=== PATIENT | female | born 1990 | race Two or more races ===

== ENCOUNTER 2021-05-03 12:32 | Inpatient (IN) | payer OTHER ==
[~2021-05-03] VITALS: Ht 162.6 cm; Wt 99.5 kg
[2021-05-03] MEDS ORDERED: ZINC SULFATE 220mg CAP or TAB PO ONE (13:15)
[2021-05-03] MEDS ORDERED: CHOLECALCIFEROL (VITD3) 2,000 UNIT CAP/TAB PO ONE (13:15)
[2021-05-03] MEDS ORDERED: ASCORBIC ACID 500 MG TAB PO ONE (13:15)
[2021-05-03] MEDS ORDERED: AZITHROMYCIN 500MG/ 250ML 250 ML IV ONE (13:15)
[2021-05-03] MEDS ORDERED: methylPREDNISolone SOD SUCC 125 MG/2 ML VL IV ONE (13:15)
[2021-05-03 13:47] LABS: Basophils # (auto) 0 10 ^3/uL (0-0.2); Basophils % (auto) 0.3 % (0.0-2.0); Eosinophils # (auto) 0 10 ^3/uL (0-0.8); Hematocrit 42.1 % (36.0-46.0); Hemoglobin 14.4 g/dL (12.2-16.2); Lymphocytes # (auto) 1.3 10 ^3/uL (0.4-5.4); Lymphocytes % (auto) 15.4 % (10.0-50.0); Mean Corpuscular Hemoglobin 28.2 pg (28.0-32.0); Mean Corpuscular Hgb Conc. 34.3 g/dL (32.0-36.0); Mean Corpuscular Volume 82.1 fL (80.0-100.0); Monocytes # (auto) 0.6 10 ^3/uL (0-1.3); Monocytes % (auto) 7.5 % (0.0-12.0); Neutrophils # (auto) 6.4 10 ^3/uL (1.6-8.6); Neutrophils % (auto) 76.8 % (37.0-80.0); Red Blood Cells 5.13 10^6/uL (4.0-5.20); Red Cell Distribution Width 13.3 % (11.8-14.3); White Blood Cell 8.4 10^3/uL (4.4-10.8)
[2021-05-03 14:04] LABS: Albumin 3.3 g/dL (3.4-5.0); Anion Gap 10 (5-15); Blood Urea Nitrogen 10 mg/dL (7-18); Calcium 8.4 mg/dL (8.5-10.1); Carbon Dioxide 23 mmol/L (21-32); Chloride 102 mmol/L (98-107); Glucose 107 mg/dL (74-106); Potassium 3.4 mmol/L (3.5-5.1); Sodium 135 mmol/L (136-145)
[2021-05-03 14:12] LABS: Alanine Aminotransferase 64 U/L (13-56); Alkaline Phosphatase 99 U/L (45-117); Aspartate Aminotransferase 50 U/L (15-37); BUN/Creatinine Ratio 12.7; Bilirubin, Total 0.5 mg/dL (0.2-1.0); CRP High Sensitivity 3.98 mg/dL (< 0.3); GFR African American 108 mL/min; GFR Non-African American 89 mL/min; Total Protein 8.2 g/dL (6.4-8.2)
[2021-05-03] MEDS ORDERED: REMDESIVIR PER PHARMACY 0 ML IV SCH ×3 (16:29→16:30)
[2021-05-03] MEDS ORDERED: guaiFENesin-DM 100/10mg/5ml SYR PO PRN (16:30)
[2021-05-03] MEDS ORDERED: MORPHINE SULFATE INJECTION 2 MG/ML SYRG IV PRN ×2 (16:30)
[2021-05-03] MEDS ORDERED: ACETAMINOPHEN 500 MG TAB PO PRN (16:30)
[2021-05-03] MEDS ORDERED: ONDANSETRON HCL 4 MG/2 ML VIAL IV PRN (16:30)
[2021-05-03] MEDS ORDERED: NITROGLYCERIN 0.4 MG SL TAB SL PRN (16:30)
[2021-05-03] MEDS ORDERED: HYDROcodone-ACET 5/325MG TAB PO PRN (16:30)
[2021-05-03] MEDS ORDERED: SODIUM CHLORIDE 0.9% 1,000 ML IV ONE (16:45)
[2021-05-03] MEDS ORDERED: POTASSIUM EFFERVESENT TAB 25 MEQ PO ONE (17:00)
[2021-05-03] MEDS ORDERED: LOPERAMIDE HCL 2 MG CAP PO PRN (18:00)
[2021-05-03] MEDS ORDERED: LOPERAMIDE HCL 2 MG CAP PO ONE (18:00)
[2021-05-03 21:38] VITALS: BP 112/71
[2021-05-03] MEDS: BUDESONIDE (INHALATION) 180 MCG IH IN SCH (21:56)
[2021-05-03] MEDS: ALBUTEROL SULF HFA 90MCG INH 200DOSE IN PRN (21:57)
[2021-05-03] MEDS: ENOXAPARIN SOD 40 MG/0.4 ML SYRINGE SC SCH (22:37)
[2021-05-03 23:55] VITALS: BP 131/83
[2021-05-04 05:30] VITALS: BP 127/83
[2021-05-04 05:54] LABS: Basophils # (auto) 0 10 ^3/uL (0-0.2); Basophils % (auto) 0.2 % (0.0-2.0); Eosinophils # (auto) 0 10 ^3/uL (0-0.8); Eosinophils % (auto) 0.1 % (0.0-7.0); Hemoglobin 13.9 g/dL (12.2-16.2); Lymphocytes % (auto) 16.9 % (10.0-50.0); Mean Corpuscular Hemoglobin 28.8 pg (28.0-32.0); Mean Corpuscular Hgb Conc. 34.9 g/dL (32.0-36.0); Mean Corpuscular Volume 82.8 fL (80.0-100.0); Monocytes # (auto) 0.4 10 ^3/uL (0-1.3); Monocytes % (auto) 7.6 % (0.0-12.0); Neutrophils # (auto) 4.3 10 ^3/uL (1.6-8.6); Neutrophils % (auto) 75.2 % (37.0-80.0); Nucleated Red Blood Cells % 0.1 %; Red Blood Cells 4.83 10^6/uL (4.0-5.20); Red Cell Distribution Width 13.6 % (11.8-14.3); White Blood Cell 5.8 10^3/uL (4.4-10.8)
[2021-05-04 06:15] LABS: INR 0.96 (0.9-1.15); Partial Thromboplastin Time 31.9 sec (23.6-33.0)
[2021-05-04 06:19] LABS: Albumin 3.1 g/dL (3.4-5.0); Calcium 8.4 mg/dL (8.5-10.1); Potassium 4.1 mmol/L (3.5-5.1)
[2021-05-04 06:22] LABS: BUN/Creatinine Ratio 18.1; Bilirubin, Total 0.4 mg/dL (0.2-1.0); Total Protein 7.8 g/dL (6.4-8.2)
[2021-05-04] MEDS: BUDESONIDE (INHALATION) 180 MCG IH IN SCH ×2 (06:37→20:17)
[2021-05-04] MEDS: ALBUTEROL SULF HFA 90MCG INH 200DOSE IN PRN ×2 (06:37→20:17)
[2021-05-04 09:00] VITALS: BP 116/80
[2021-05-04] MEDS: ZINC SULFATE 220mg CAP or TAB PO SCH (09:52)
[2021-05-04] MEDS: AZITHROMYCIN 500MG/ 250ML 250 ML IV SCH (09:52)
[2021-05-04] MEDS: DexAMETHasone SOD PHOS 10MG/1ML VIAL INJ IV SCH (09:52)
[2021-05-04] MEDS: IVERMECTIN 3 MG TAB PO SCH (09:53)
[2021-05-04] MEDS: CHOLECALCIFEROL (VITD3) 2,000 UNIT CAP/TAB PO SCH (09:53)
[2021-05-04] MEDS: ASCORBIC ACID 1,000 MG TAB PO SCH (09:53)
[2021-05-04] MEDS: POTASSIUM EFFERVESENT TAB 25 MEQ PO SCH (09:53)
[2021-05-04] MEDS: ENOXAPARIN SOD 40 MG/0.4 ML SYRINGE SC SCH ×2 (09:53→21:24)
[2021-05-04 12:48] VITALS: BP 117/77
[2021-05-04] MEDS ORDERED: REMDESIVIR 200 MG in NS 210ml LOADING DOSE ADULT IV ONE (13:00)
[2021-05-04 15:23] LABS: Urine Amorphous Crystal FEW /hpf (None Seen); Urine Bacteria FEW /hpf (None Seen); Urine Blood TRACE /uL (Negative); Urine Hyaline Cast FEW /lpf (0 - 2); Urine Mucus FEW (None Seen); Urine Specific Gravity 1.036 (1.001-1.035); Urine WBC 8 /hpf (0 - 5)
[2021-05-04 17:00] VITALS: BP 113/78
[2021-05-04 22:00] VITALS: BP 129/75
[2021-05-05 05:27] VITALS: BP 127/65
[2021-05-05 06:15] LABS: Potassium 3.9 mmol/L (3.5-5.1)
[2021-05-05 06:23] LABS: BUN/Creatinine Ratio 20.5; Bilirubin, Total 0.4 mg/dL (0.2-1.0); Calcium 8.7 mg/dL (8.5-10.1); Total Protein 7.5 g/dL (6.4-8.2)
[2021-05-05] MEDS: BUDESONIDE (INHALATION) 180 MCG IH IN SCH ×2 (06:55→22:27)
[2021-05-05] MEDS: ALBUTEROL SULF HFA 90MCG INH 200DOSE IN PRN ×2 (06:55→22:27)
[2021-05-05 08:41] VITALS: BP 106/69
[2021-05-05] MEDS: CHOLECALCIFEROL (VITD3) 2,000 UNIT CAP/TAB PO SCH (10:30)
[2021-05-05] MEDS: ASCORBIC ACID 1,000 MG TAB PO SCH (10:40)
[2021-05-05] MEDS: POTASSIUM EFFERVESENT TAB 25 MEQ PO SCH (10:40)
[2021-05-05] MEDS: AZITHROMYCIN 500MG/ 250ML 250 ML IV SCH (10:40)
[2021-05-05] MEDS: ZINC SULFATE 220mg CAP or TAB PO SCH (10:41)
[2021-05-05] MEDS: DexAMETHasone SOD PHOS 10MG/1ML VIAL INJ IV SCH (10:42)
[2021-05-05] MEDS: ENOXAPARIN SOD 40 MG/0.4 ML SYRINGE SC SCH ×2 (10:42→20:55)
[2021-05-05] MEDS ORDERED: ERGOCALCIFEROL 50,000 UNIT(1.25MG) CAP PO SCH (11:30)
[2021-05-05] MEDS: IVERMECTIN 3 MG TAB PO SCH (12:06)
[2021-05-05 12:36] VITALS: BP 115/70
[2021-05-05] MEDS: REMDESIVIR 100mg 100 MG in SODIUM CHL 0.9% 230 ML IV SCH (15:30)
[2021-05-05 17:00] VITALS: BP 115/69
[2021-05-05 22:00] VITALS: BP 112/72
[2021-05-06 05:00] VITALS: BP 102/78
[2021-05-06 05:48] LABS: Potassium 3.9 mmol/L (3.5-5.1)
[2021-05-06 06:02] LABS: Albumin 2.9 g/dL (3.4-5.0); BUN/Creatinine Ratio 28.3; Bilirubin, Total 0.4 mg/dL (0.2-1.0); Calcium 8.5 mg/dL (8.5-10.1); Total Protein 7.5 g/dL (6.4-8.2)
[2021-05-06 09:00] VITALS: BP 103/50
[2021-05-06 09:14] VITALS: BP 103/50
[2021-05-06] MEDS: ZINC SULFATE 220mg CAP or TAB PO SCH (10:14)
[2021-05-06] MEDS: AZITHROMYCIN 500MG/ 250ML 250 ML IV SCH (10:14)
[2021-05-06] MEDS: IVERMECTIN 3 MG TAB PO SCH (10:15)
[2021-05-06] MEDS: DexAMETHasone SOD PHOS 10MG/1ML VIAL INJ IV SCH (10:16)
[2021-05-06] MEDS: ASCORBIC ACID 1,000 MG TAB PO SCH (10:16)
[2021-05-06] MEDS: FLORASTOR (S. BOULARDII) 250 MG CAP PO SCH (10:16)
[2021-05-06] MEDS: ENOXAPARIN SOD 40 MG/0.4 ML SYRINGE SC SCH ×2 (10:25→21:57)
[2021-05-06 12:30] VITALS: BP 114/75
[2021-05-06] MEDS: REMDESIVIR 100mg 100 MG in SODIUM CHL 0.9% 230 ML IV SCH (15:30)
[2021-05-06 17:00] VITALS: BP 115/71
[2021-05-06] MEDS: ALBUTEROL SULF HFA 90MCG INH 200DOSE IN PRN (20:25)
[2021-05-06] MEDS: BUDESONIDE (INHALATION) 180 MCG IH IN SCH (20:25)
[2021-05-06 22:00] VITALS: BP 110/71
[2021-05-07 05:00] VITALS: BP 110/71
[2021-05-07 06:45] LABS: Potassium 4.3 mmol/L (3.5-5.1)
[2021-05-07 06:53] LABS: Albumin 2.7 g/dL (3.4-5.0); BUN/Creatinine Ratio 26.8; Bilirubin, Total 0.4 mg/dL (0.2-1.0); Calcium 8.3 mg/dL (8.5-10.1); Total Protein 6.8 g/dL (6.4-8.2)
[2021-05-07] MEDS: BUDESONIDE (INHALATION) 180 MCG IH IN SCH (07:09)
[2021-05-07] MEDS: ALBUTEROL SULF HFA 90MCG INH 200DOSE IN PRN (07:09)
[2021-05-07 09:00] VITALS: BP 117/71
[2021-05-07] MEDS: AZITHROMYCIN 500MG/ 250ML 250 ML IV SCH (10:00)
[2021-05-07] MEDS: IVERMECTIN 3 MG TAB PO SCH (10:00)
[2021-05-07] MEDS: ASCORBIC ACID 1,000 MG TAB PO SCH (10:00)
[2021-05-07] MEDS: FLORASTOR (S. BOULARDII) 250 MG CAP PO SCH (10:00)
[2021-05-07] MEDS: ZINC SULFATE 220mg CAP or TAB PO SCH (10:00)
[2021-05-07] MEDS: DexAMETHasone SOD PHOS 10MG/1ML VIAL INJ IV SCH (10:00)
[2021-05-07] MEDS: ENOXAPARIN SOD 40 MG/0.4 ML SYRINGE SC SCH (10:00)
== END 2021-05-07 10:35 | disposition left against medical advice (07) | DRG 871 ==
LOC: ER 12:32 → TELE 18:24 → TELE-EAST 23:44
PROVIDERS: ADMIT Nurse Practitioner Acute Care; ATTEND Internal Medicine
PROC: XW033E5 Introduction of Remdesivir Anti-infective into Peripheral Vein, Percutaneous Approach, New Technology Group 5 (ICD-10-PCS; principal; 2021-05-04)
DX: A41.89 Other specified sepsis (principal); J12.82 Pneumonia due to coronavirus disease 2019; U07.1 COVID-19; J96.01 Acute respiratory failure with hypoxia; D68.59 Other primary thrombophilia; Z68.41 Body mass index [BMI] 40.0-44.9, adult; D89.839 Cytokine release syndrome, grade unspecified; E66.9 Obesity, unspecified; E87.6 Hypokalemia; Z53.29 Procedure and treatment not carried out because of patient's decision for other reasons; Z83.3 Family history of diabetes mellitus
CPT/HCPCS: 36415; 71045; 80053; 81001; 82306; 82728; 83605; 84484; 85025; 85379; 85610; 85730; 86141; 87040; 87086; 87426; 87493; 93005; 94640; 96361; 96365; 96372; 96375; 99291; G0378; J1100